=== PATIENT | female | born 1955 | race Caucasian/White ===

== ENCOUNTER 2019-06-02 08:58 | Outpatient (RCR) | payer OTHER, SELFPAY | END 2019-08-31 23:59 | disposition home or self-care (01) | LOC: CHSAUDIO 08:58 | PROVIDERS: PCP Nurse Practitioner Family; Visit Provider Audiologist | DX: H93.11 Tinnitus, right ear (principal) | CPT/HCPCS: 92557; 92567 ==

== ENCOUNTER 2020-10-03 12:16 | Outpatient (CLI) | payer OTHER, SELFPAY ==
--- NOTE | ~2020-10-03 | DEXA_ITS ---
Bone Density Report Name: Hector Stafford Age: 65 Sex: Female Ethnicity: White Date of : 1955 Indication: postmenopausal; screening for osteoporosis; height loss; hysterectomy; Referring Provider: Meka Chanel Study: Bone densitometry was performed. Exam Date: October 03, 2020 Accession number: [id number] Bone Density: Region BMD T-score Z-score Classification AP Spine(L1-L4) 0.858 -1.7 0.1 Osteopenia Femoral Neck (Left) 0.602 -2.2 -0.7 Osteopenia Total Hip (Left) 0.774 -1.4 -0.1 Osteopenia Femoral Neck (Right) 0.674 -1.6 0.0 Osteopenia Total Hip (Right) 0.830 -0.9 0.4 Normal Femoral Neck Mean 0.638 -1.9 -0.3 Osteopenia Total Hip Mean 0.802 -1.1 0.1 Osteopenia World Health Organization criteria for BMD impression classify patients as: Normal (T-score at or above -1.0), Osteopenia (T-score between -1.0 and -2.5), or Osteoporosis (T-score at or below -2.5). 10-year Fracture Risk(1): Major Osteoporotic Fracture 11% Hip Fracture 1.8% Reported Risk Factors: [place] (), Neck BMD=0.602, BMI=30.0 (1) FRAX(R) Version 3.08. Fracture probability calculated for an untreated patient. Fracture probability may be lower if the patient has received treatment. Clinical Information Provided by Patient: Has used the following medications: Vitamin D Has the following medical conditions: Hysterectomy Patient maximum height was 63 Menopause Age: 49 No regular weight bearing exercise Does not regularly consume dairy products Onset of menses at age 11 Number of children 2 Impression: The patient has low bone mass, based on the Left Femoral Neck T-score. Discussion: BONE DENSITY IS LOW AT ONE OR MORE SKELETAL SITES. This patient's lowest T-score is low at one or more skeletal sites. It meets the World Health Organization's (WHO) criteria for ?low bone mass? (T-score between -1.0 and -2.5). The patient's 10-year risk of fracture as calculated by FRAX is less than the threshold where pharmacological therapy is recommended by the National Osteoporosis Foundation (NOF). However, all treatment decisions require clinical judgment and consideration of individual patient factors, including patient preferences, comorbidities, previous drug use, risk factors not captured in the FRAX model (e.g., frailty, falls, vitamin D deficiency, increased bone turnover, interval significant decline in bone density) and possible under or overestimation of fracture risk by FRAX. The patient should follow a healthful lifestyle (good nutrition with adequate calcium and vitamin D, and appropriate weight-bearing exercise). Follow-Up: Consider repeating this study in 2 to 3 years to reassess this patient's status, or sooner if there is some new clinical indication. Reported by: Dr. Shen Pearson
--- NOTE | ~2020-10-03 | MM_ITS ---
EXAMINATION: MM screening elissa BI w leonila HISTORY: Screening mammogram TECHNIQUE: Craniocaudal and mediolateral oblique 3-D tomosynthesis images were obtained and synthetic 2-D images were generated. CAD analysis was submitted and interpreted. COMPARISON: 05/11/2018, 03/29/2015 bilateral digital screening mammogram examinations BREAST PARENCHYMAL COMPOSITION: There are scattered areas of fibroglandular density. FINDINGS: Scattered benign calcifications. There is no evidence of suspicious mass, calcification, or architectural distortion to suggest malignancy in either breast. There has been no suspicious interv al change. IMPRESSION: 1. No mammographic evidence of malignancy. 2. Recommend routine screening mammography in one year. BI-RADS Category 1: Negative Reviewed, dictated and finalized at location A.
== END 2020-10-03 12:17 | disposition home or self-care (01) ==
LOC: CHSIMG 12:21
PROVIDERS: PCP Nurse Practitioner Family; Visit Provider Nurse Practitioner Family
DX: Z12.31 Encounter for screening mammogram for malignant neoplasm of breast (principal); Z78.0 Asymptomatic menopausal state
CPT/HCPCS: 77063; 77067; 77080

== ENCOUNTER 2021-03-15 09:38 | Outpatient (CLI) | payer OTHER, SELFPAY ==
[2021-03-15 10:35] LABS: Influenza A QL RT-PCR Negative (Negative); Influenza B QL RT-PCR Negative (Negative); SARS-CoV-2 RNA PCR Positive (Negative)
== END 2021-03-15 09:39 | disposition home or self-care (01) ==
LOC: CHSLAB 09:43
PROVIDERS: PCP Nurse Practitioner Family; Visit Provider Nurse Practitioner Family
DX: R50.9 Fever, unspecified (principal); U07.1 COVID-19
CPT/HCPCS: 87502; C9803; U0003; U0005

== ENCOUNTER 2021-03-28 11:14 | Outpatient (CLI) | payer OTHER, SELFPAY ==
[2021-03-28 13:42] LABS: SARS-CoV-2 RNA PCR Negative (Negative)
== END 2021-03-28 11:15 | disposition home or self-care (01) ==
LOC: CHSLAB 11:18
PROVIDERS: PCP Nurse Practitioner Family; Visit Provider Nurse Practitioner Family
DX: Z20.822 Contact with and (suspected) exposure to COVID-19 (principal)
CPT/HCPCS: C9803; U0003; U0005

== ENCOUNTER 2021-10-22 17:08 | Outpatient (CLI) | payer MEDICARE, OTHER, SELFPAY ==
--- NOTE | ~2021-10-22 | XR_ITS ---
EXAMINATION: XR chest 2V 10/22/2021 17:27 INDICATION: Shortness of breath with cough PROCEDURE: 2 view chest COMPARISON: 01/09/2017 FINDINGS: The lungs are clear. The cardiomediastinal silhouette is within normal limits. There are no pleural effusions. There is no pneumothorax suspected. There are cholecystectomy clips. IMPRESSION: 1: NO ACUTE CARDIOPULMONARY DISEASE. Reviewed, dictated and finalized at location A.
== END 2021-10-22 17:09 | disposition home or self-care (01) ==
LOC: CHSIMG 17:13
PROVIDERS: PCP Nurse Practitioner Family; Visit Provider Nurse Practitioner Family
DX: R06.02 Shortness of breath (principal); R05.9 Cough, unspecified
CPT/HCPCS: 71046

== ENCOUNTER 2021-11-07 17:06 | Outpatient (CLI) | payer MEDICARE, OTHER, SELFPAY ==
--- NOTE | ~2021-11-07 | XR_ITS ---
EXAMINATION: XR chest 2V Exam Date/Time: 11/07/2021 17:15 CDT HISTORY: sob with productive cough x 1 mo Comparison: 10/22/2021. RESULT: Lines, tubes, and devices: Cholecystectomy clips. Lungs and pleura: Clear. Cardiomediastinal silhouette: Stable. Other: No acute osseous or upper abdominal finding. IMPRESSION: No acute cardiopulmonary process. Reviewed, dictated and finalized at location K.
== END 2021-11-07 17:07 | disposition home or self-care (01) ==
LOC: CHSIMG 17:08
PROVIDERS: PCP Nurse Practitioner Family; Visit Provider Nurse Practitioner Family
DX: U07.1 COVID-19 (principal)
CPT/HCPCS: 71046

== ENCOUNTER 2023-01-30 10:18 | Outpatient (CLI) | payer MEDICARE, OTHER, SELFPAY ==
--- NOTE | ~2023-01-30 | XR_ITS ---
XR chest 2V DATE: 01/30/2023 11:10 INDICATION: Productive cough, midsternal chest pain for 4 days TECHNIQUE: 2 views COMPARISON: 11/07/2021 PA and lateral chest FINDINGS: Normal heart size. Aortic arch calcification, mild aortic unfolding. No hilar or mediastina l enlargement. No pulmonary infiltrate or consolidation, pleural effusion or pulmonary vascular conge stion or pneumothorax. Status post cholecystectomy. IMPRESSION: No active cardiopulmonary disease Aortic atherosclerosis. Status post cholecystectomy Reviewed, dictated and finalized at location L.
[2023-01-30 10:54] LABS: Basophils Absolute Auto 0.05 K/mm3 (0.00-0.10); Basophils Percent Auto 0.7 % (0.0-1.0); Eosinophils Percent Auto 1.5 % (1.0-6.0); Hematocrit 38.1 % (35.0-42.0); Hemoglobin 12.3 g/dL (11.7-13.8); Immature Granulocyte Absolute 0.02 K/mm3 (0.00-0.00); Immature Granulocyte Percent A 0.3 % (0.0-0.0); Lymphocytes Absolute Auto 1.41 K/mm3 (1.10-4.50); Lymphocytes Percent Auto 20.9 % (18.0-42.0); Mean Corpuscular HGB Conc 32.3 g/dL (32.0-36.0); Mean Corpuscular Hemoglobin 30.8 pg (27.0-31.0); Mean Corpuscular Volume 95.3 fL (78.0-102.0); Mean Platelet Volume 9.2 fl (9.2-11.8); Monocytes Absolute Auto 0.34 K/mm3 (0.10-0.90); Neutrophils Absolute Auto 4.8 K/mm3 (1.7-7.2); Neutrophils Percent Auto 71.6 % (50.0-70.0); Platelet Count Result 216 K/mm3 (150-420); Red Cell Distribution Width 13.4 % (11.6-14.4); White Blood Count 6.7 K/mm3 (4.8-10.8)
[2023-01-30 12:10] LABS: Alanine Aminotransferase 131 U/L (14-59); Albumin Level 3.9 g/dL (3.4-5.0); Alkaline Phosphatase 103 U/L (46-116); Anion Gap 14 mmol/L (8-16); Aspartate Amino Transferase 55 U/L (15-37); Bilirubin,Total 0.5 mg/dL (0.00-1.00); Blood Urea Nitrogen 13 mg/dL (7-18); Calcium 9.6 mg/dL (8.5-10.1); Carbon Dioxide 24 mmol/L (21-32); Chloride 105 mmol/L (98-108); Estimated Glomerular Filt Rate > 60; Glucose 91 mg/dL (70-99); Osmolality Calculated 296 mOsm/kg (285-295); Potassium 4.2 mmol/L (3.5-5.1); Sodium 143 mmol/L (136-145); Total Protein 6.9 g/dL (6.4-8.2)
== END 2023-01-30 10:19 | disposition home or self-care (01) ==
LOC: CHSLAB 10:20
PROVIDERS: PCP Family Medicine; Visit Provider Family Medicine
DX: I70.0 Atherosclerosis of aorta (principal); R05.9 Cough, unspecified; Z90.49 Acquired absence of other specified parts of digestive tract
CPT/HCPCS: 36415; 71046; 80053; 85025

== ENCOUNTER 2023-07-10 12:51 | Outpatient (CLI) | payer MEDICARE, OTHER, SELFPAY ==
--- NOTE | ~2023-07-10 | CT_ITS ---
EXAMINATION: CT lung screening DATE: 07/10/2023 13:28 INDICATION: TECHNIQUE: Computed tomography (CT) of the chest was performed without intravenous contrast. The dose -length product was 87.72 mGy-cm. Automated exposure control and iterative reconstruction technique w ere employed. COMPARISON: None FINDINGS: No significant pleural or pericardial effusion. No significant pleural or pericardial effus ion. No thoracic lymphadenopathy. There is atherosclerosis of the aorta and coronary arteries. Status post cholecystectomy. The there are scattered calcified granulomas no focal airspace consolidation. No noncalcified pulmonary nodules. There are hemangiomas of the thoracic spine. Mild thoracic spondyl osis. IMPRESSION: 1. Lung-RADS category 1: Negative. Continue annual screening with noncontrast low-dose chest CT in 12 months. Reviewed, dictated and finalized at location B. IMPRESSION: 1. Lung-RADS category 1: Negative. Continue annual screening with noncontrast l ow-dose chest CT in 12 months.
--- NOTE | ~2023-07-10 | DEXA_ITS ---
Bone Density Report Name: NADIR FREITAS Age: 67 Sex: Female Ethnicity: White Date of : 1955 Indication: postmenopausal; screening for osteoporosis; height loss; cancer; hysterectomy; Referring Provider: Rubi Francisco Study: Bone densitometry was performed. Exam Date: July 10, 2023 Accession number: [id number] Bone Density: Region BMD T-score Z-score Classification AP Spine(L1-L4) 0.842 -1.9 0.2 Osteopenia Femoral Neck (Left) 0.612 -2.1 -0.4 Osteopenia Total Hip (Left) 0.773 -1.4 0.0 Osteopenia Femoral Neck (Right) 0.690 -1.4 0.3 Osteopenia Total Hip (Right) 0.864 -0.6 0.8 Normal Femoral Neck Mean 0.651 -1.8 -0.1 Osteopenia Total Hip Mean 0.819 -1.0 0.4 Normal World Health Organization criteria for BMD impression classify patients as: Normal (T-score at or above -1.0), Osteopenia (T-score between -1.0 and -2.5), or Osteoporosis (T-score at or below -2.5). 10-year Fracture Risk(1): Major Osteoporotic Fracture 11% Hip Fracture 2.1% Reported Risk Factors: [place] (), Neck BMD=0.612, BMI=29.1 (1) FRAX(R) Version 3.08. Fracture probability calculated for an untreated patient. Fracture probability may be lower if the patient has received treatment. Clinical Information Provided by Patient: Has used the following medications: Vitamin D, multi Has the following medical conditions: Cancer, Hysterectomy Patient maximum height was 63 Menopause Age: 49 Does not regularly consume dairy products Onset of menses at age 11 Number of children 2 Impression: The patient has low bone mass, based on the Left Femoral Neck T-score. Discussion: BONE DENSITY IS LOW AT ONE OR MORE SKELETAL SITES. This patient's lowest T-score is low at one or more skeletal sites. It meets the World Health Organization's (WHO) criteria for ?low bone mass? (T-score between -1.0 and -2.5). The patient's 10-year risk of fracture as calculated by FRAX is less than the threshold where pharmacological therapy is recommended by the National Osteoporosis Foundation (NOF). However, all treatment decisions require clinical judgment and consideration of individual patient factors, including patient preferences, comorbidities, previous drug use, risk factors not captured in the FRAX model (e.g., frailty, falls, vitamin D deficiency, increased bone turnover, interval significant decline in bone density) and possible under or overestimation of fracture risk by FRAX. The patient should follow a healthful lifestyle (good nutrition with adequate calcium and vitamin D, and appropriate weight-bearing exercise). Follow-Up: Consider repeating this study in 2 to 3 years to reassess this patient's status, or sooner if there is some new clinical indication. Reported by: Dr. Shen Diaz on 07/10/2023 1:22:00 PM. Reviewed, dictated and
--- NOTE | ~2023-07-10 | MM_ITS ---
EXAMINATION: MM screening elissa BI w leonila HISTORY: Screening mammogram TECHNIQUE: Craniocaudal and mediolateral oblique 3-D tomosynthesis images were obtained and synthetic 2-D images were generated. CAD analysis was submitted and interpreted. COMPARISON: 10/03/2020 bilateral screening mammogram BREAST PARENCHYMAL COMPOSITION: There are scattered areas of fibroglandular density. FINDINGS: There is no evidence of suspicious mass, calcification, or architectural distortion to sugg est malignancy in either breast. There has been no suspicious interval change. IMPRESSION: 1. No mammographic evidence of malignancy. 2. Recommend routine screening mammography in one year. BI-RADS Category 1: Negative Reviewed, dictated and finalized at location A.
== END 2023-07-10 12:52 | disposition home or self-care (01) ==
PROVIDERS: PCP Family Medicine; Visit Provider Nurse Practitioner Family
DX: Z12.31 Encounter for screening mammogram for malignant neoplasm of breast (principal); Z78.0 Asymptomatic menopausal state; Z87.891 Personal history of nicotine dependence; Z12.2 Encounter for screening for malignant neoplasm of respiratory organs; M85.89 Other specified disorders of bone density and structure, multiple sites
CPT/HCPCS: 71271; 77063; 77067; 77080

== ENCOUNTER 2024-07-09 09:05 | Outpatient (CLI) | payer MEDICARE, OTHER, SELFPAY ==
--- OUTSIDE RECORDS SUMMARY | 2024-07-09 09:35 | XMS_ITS | CONTINUITY OF CARE DOCUMENT ---
Author Name juan carlosdixiejuan carlosdixie Address Unknown Organization [facility] Address [address] [place] [address] Phone [phone] Care Team Providers Care Handle Finisher Name Role Phone Campos Amaral MD Unavailable LUTHER POLLACK MD Unavailable LUTHER POLLACK MD Unavailable PROBLEMS Condition Status Date Provider Notes Carotid artery disease active Campos Amaral MD Palpitations active Campos Amaral MD Chest pain-type to be determined active Kaylan Amaral MD ENCOUNTERS Date Type Provider Location Encounter Diag nosis - In-person encounter Office Visit [facility] - In-person encounter Office Visit Campos Amaral MD [facility] Office Carotid artery diseasePalpitationsChest pain-type to be determined VITAL SIGNS Date Observation Value Provider Body Mass Index (Ratio) 29.76 kg/m2 José Miguel Amaral MD blood pressure, diastolic 78 mm[Hg] Us windy Amaral MD blood pressure, systolic 120 mm[Hg] Kaylan Amaral MD pulse rate 66 /min Campos Amaral MD oxygen saturation, oximetry 99 % Campos Amaral MD respiratory rate E&M 20 /min Campos barron MD weight E&M 168 [lb_av] Campos Amaral MD height E&M 63 [in_i] Campos Amaral MD blood pressure, diastolic 70 mm[Hg] Us windy Amaral MD blood pressure, systolic 110 mm[Hg] Kaylan Amaral MD oxygen saturation, oximetry 99 % Campos Amaral MD pulse rate 72 /min Campos Amaral MD weight E&M 170 [lb_av] Campos Amaral MD ALLERGIES No Known Drug Allergies HISTORY OF MEDICATION USE Medication Status Instructions Dates Provider Indications Com ments CLASSIC TABLET active one tab daily Cari Solorzano VITAMIN D3 2000 UNIT ORAL TABLET active one tab daily Campos Amaral MD MAGNESIUM CITRATE POWDER active every day Cari Solorzano LORAZEPAM 0.5 MG ORAL TABLET completed as needed - Campos Amaral MD AMBIEN 5 MG ORAL TABLET active one and a half tab at bedtime Campos Amaral MD ASPIRIN 81 MG ORAL TABLET active ONE TAB. DAILY Campos Amaral MD PRAVACHOL 40 MG ORAL TABLET active ONE TAB. DAILY Campos Amaral MD SOCIAL HISTORY Date Observation Value Provider smoking/tobacco cess ation, patient education and counseling yes Campos Amaral MD social history E&M Patient is a former smoker. Smoking History: P atcady is a former smoker. B enefits of tobacco cessation reviewed. Campos Amaral MD social history reviewed E&M revi ewed - no changes required Campos Amaral MD cigarette use yes Campos Dumont smoking status Former smoker Campos Amaral MD smoking status Former smoker Campos Amaral MD FAMILY HISTORY Family Member Condition Daughter Negative FH of A S C V D INSURANCE PROVIDERS Payer name Policy type / Coverage type [place] [employer] party ID [id number] [id number] TREATMENT PLAN Date Name Performer Follow-up printed to travon Amaral MD Follow-up printed to travon Amraal MD
[2024-07-09 09:54] LABS: Add Urine Microscopic? YES; Appearance Urine Clear (Clear); Bilirubin Urine Negative (Negative); Blood Urine 1+ (Negative); Color Urine Light Yellow (Yellow); Glucose Urine UA Negative (Negative); Ketones Urine Negative (Negative); Leukocyte Esterase Ur 2+ LEU/UL (Negative); Nitrate Urine Positive (Negative); Protein Urine Negative (Negative); Specific Grav Ur 1.015 (1.010-1.020); Urobilinogen Urine 0.2 mg/dL (0.2-1.0)
[2024-07-09 10:04] LABS: Bacteria Urine 2+ /hpf; Squamous Epithelial Cell Urine Rare /hpf (Few); WBC Urine 31-50 /hpf (0-3)
== END 2024-07-09 09:06 | disposition home or self-care (01) ==
PROVIDERS: PCP Nurse Practitioner Family; Visit Provider Nurse Practitioner Family
DX: R39.9 Unspecified symptoms and signs involving the genitourinary system (principal)
CPT/HCPCS: 81001; 87086; 87186

== ENCOUNTER 2024-07-12 07:40 | Outpatient (CLI) | payer MEDICARE, OTHER, SELFPAY ==
--- NOTE | ~2024-07-12 | US_ITS ---
Limited Abdominal Sonogram: Real-time sonographic imaging of the right upper quadrant was performed. Clinical History: Abnormal serum enzyme levels Findings: The liver appears normal with no evidence of bile duct dilatation. 1.8 cm hyperechoic lesi on in the liver is most likely hemangioma. Main portal vein demonstrates normal direction of flow. Th e gallbladder is well distended, and appears normal with no evidence of gallstone or wall thickening. The common bile duct measures 4 mm. The visualized pancreas, aorta, and IVC are unremarkable. Impression: 1.8 cm hyperechoic hepatic lesion is most likely hemangioma. Consider follow-up confirmation with MR. Reviewed, dictated and finalized at location . Impression: 1.8 cm hyperechoic hepatic lesion is most likely hemangioma. Consider follow-up confirmation with MR.
--- NOTE | ~2024-07-12 | MM_ITS ---
EXAMINATION: MM screening elissa BI w leonila HISTORY: Screening mammogram TECHNIQUE: Craniocaudal and mediolateral oblique 3-D tomosynthesis images were obtained and synthetic 2-D images were generated. CAD analysis was submitted and interpreted. COMPARISON: 07/10/2023, 10/01/2020, 05/11/2018 BREAST PARENCHYMAL COMPOSITION:Not Dense. The breasts are almost entirely fatty FINDINGS: No suspicious mass, calcification, or architectural distortion are identified in either randy ast to suggest malignancy. There has been no suspicious interval change. IMPRESSION: No mammographic evidence of malignancy. Recommend routine screening mammography in one year. BI-RADS Category 1: Negative Reviewed, dictated and finalized at location .
--- OUTSIDE RECORDS SUMMARY | 2024-07-12 07:45 | XMS_ITS | Data Portability ---
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 Mucositis secondary to methotrexate therapy. 2. Psoriatic arthritis. 3. Plaque psoriasis currently well controlled. 4. Osteoarthritis. 5. High risk medication use. nv PLAN: 1. Increase folic acid to 2 mg daily. 2. Continue current methotrexate dosing. 3. Advised the patient to avoid alcohol while taking methotrexate. 4. DMARD labs in October 2023 as ordered. 5. Followup visit in 6 months for recheck. nv [email or web address] Not available 08/22/2023 11:32:58 02/26/2024 02/26/2024 IMPRESSION: 1. Psoriatic arthritis, currently well controlled. 2. Plaque psoriasis, well controlled. 3. Osteoarthritis. PLAN: 1. DMARD labs in June of 2024 as scheduled. 2. Continue current methotrexate and folate dosing. 3. Follow up visit in 6 months for a recheck. 4. Encouraged the patient to engage in a program of low impact aerobic exercise for 30 to 45 minutes, 3 to 4 times a week. aar [email or web address] Not available 02/26/2024 16:29:34 Plan of Treatment Reminders Order Date Submit Date Provider Last Modified By Organization Details Last Modified Time Details Appointments Establish ed Patient 15.EST 2024 01:30P M Dr. Gonzalo Vargas Not available Not available Not available Lab None recorded. Referral None recorded. Procedures None recorded. Surgeries None recorded. Imaging None recorded. Medication Orders None recorded. Patient TargetsNo targets recorded. Patient InstructionsNo instructions recorded. Reason for Referral None Reported. Results Created Date Observation Date Name Description Value Unit Range Abnormal Flag Note LastModifiedBy Organization Detail LastModifiedTime Result Notes None recorded. Problems Name Problem SNOMED Code Status Onset Date Resolution Date Notes Provider Name and Address Organization Details Recorded Time Psoriatic arthritis 291754742 Active 2023 Danielsalvatore Ponce [facility] 4 17:46:24 Medication monitoring Active 2023 Daniel Ponce [facility] 4 17:46:35 Plaque psoriasis 980043135 Active 2023 Katerin Heath [facility] 4 13:40:52 Osteoarthritis 780674789 Active 2023 Katerin Heath [facility] 4 13:40:59 Stomatitis 14352652 Active 2023 Gonzalo Vargas MD [address] [place] [address], [phone], [facility] 4 15:23:33 Problem Notes None recorded. Procedures Surgical History Date Name Laterality Status Provider Name and Address Organization Details Recorded Time Colonoscopy with biopsy completed Not Available Health Note 08/19/2023 14:56:08 Removal of gallbladder completed Not Available Health Note 08/19/2023 14:56:08 Partial hysterectomy completed Not Available Health Note 08/19/2023 14:56:08 Imaging Results None recorded. Procedure Notes None recorded. Medical Equipment None Reported. Allergies No known drug allergies Medications Name Sig Start Date Stop Date Status Note LastModified by Organization Details LastModified Time citalopram 40 mg tablet TAKE 1 TABLET BY MOUTH EVERY DAY active Not Available Not Available No t Available trazodone 50 mg tablet TAKE 1 TABLET BY MOUTH EVERYDAY AT BEDTIME active Not Available Not Available No t Available pravastatin 40 mg tablet TAKE 1 TABLET BY MOUTH EVERY DAY active Not Available Not Available No t Available fluconazole 150 mg tablet 150 MG ORALLY ONCE TAKE FIRST DOSE TODAY AND REPEAT IN 3 DAYS 08/19 completed Not Available Not Available Not Available benzonatate 200 mg capsule TAKE 1 CAPSULE BY MOUTH TWICE A DAY NEEDED FOR COUGH 08/19 completed Not Available Not Available Not Available meloxicam 15 mg tablet TAKE 1/2 TABLET BY MOUTH DAILY 08/20 completed Not Available Not Available Not Available Zyrtec 10 mg tablet Take 1 tablet every day by oral route. active Not Available Not Available No t Available methotrexat e sodium 2.5 mg tablet ONCE WEEKLY, TAKE 6 TABLETS BY MOUTH (OK TO TAKE 3 TABLETS IN A.M. & IN P.M. OF SAME DAY) active Not Available Not Available No t Available Multiple Vitamins tablet Take 1 tablet every day by oral route. active Not Available Not Available No t Available doxycycline monohydrate 100 mg capsule TAKE 1 CAPSULE BY MOUTH TWICE A DAY 08/19 completed Not Available Not Available Not Available aspirin 81 mg chewable tablet Chew 1 tablet every day by oral route. active Not Available Not Available No t Available folic acid 1 mg tablet TAKE 2 TABLETS BY MOUTH EVERY DAY FOR 90 DAYS active Not Available Not Available No t Available ipratropium bromide 42 mcg (0.06 %) nasal spray 2 [facility] THREE TIMES A DAY ADMINISTE R INTO EACH NOSTRIL 08/20 completed Not Available Not Available Not Available fluticasone propionate 50 mcg/actuati on nasal spray,suspe nsion INSTILL 1 SPRAY INTO EACH NOSTRIL DAILY 08/19 completed Not Available Not Available Not Available amoxicillin 875 mg-potassiu m clavulanate 125 mg tablet TAKE 1 TABLET BY MOUTH TWICE A DAY 08/19 completed Not Available Not Available Not Available azithromyci n 500 mg tablet TAKE 1 TABLET BY MOUTH DAILY FOR 5 DAYS 08/19 completed Not Available Not Available Not Available Vitamin D3 50 mcg (2,000 unit) tablet Take 1 tablet every day by oral route. active Not Available Not Available No t Available melatonin 10 mg tablet Take 1 tablet every day by oral route. active Not Available Not Available No t Available Cough DM ER 30 mg/5 mL oral suspension, extended release 10 ML ORALLY EVERY 12 HOURS NEEDED FOR COUGH 08/19 completed Not Available Not Available Not Available Chest Congestion- Cough HBP 10 mg-200 mg capsule TAKE 1 CAPSULE TWICE DAILY NEEDED FOR COUGH 08/19 completed Not Available Not Available Not Available omega 3 850 mg-dha-epa- fish oil 1,400 mg capsule Take 1 capsule every day by oral route. active Not Available Not Available No t Available Vitals Date Recorded Body height Body mass index (BMI) Body weight Heart rate Oxygen saturation Oxygen saturation in Arterial blood by Pulse oximetry Pain severity - 0-10 verbal numeric rating [Score] - Reported Systolic blood pressure Diastolic blood pressure Provider Name and Address Organization Details Last Updated DateTime 4 160.02 cm 29.1 kg/m2 20757.1 5 g 54 /min 99 % 99 % 0 126 mm[Hg] 80 mm[Hg] Katerin Heath [facility] 4 14:49:28 Date Recorded Body height Body mass index (BMI) Body weight Heart rate Oxygen saturation Oxygen saturation in Arterial blood by Pulse oximetry Pain severity - 0-10 verbal numeric rating [Score] - Reported Systolic blood pressure Diastolic blood pressure Provider Name and Address Organization Details Last Updated DateTime 4 160.02 cm 30.1 kg/m2 88305.3 4 g 60 /min 97 % 97 % 0 116 mm[Hg] 66 mm[Hg] Erendira Orourke [facility] 4 14:31:22 Social History Question Answer Notes LastModified by Organizat ion Details LastModified Time Tobacco Smoking Status Former Smoker Erendira Orourke [facility] 02/26/2024 14:32:08 Do You Have An Advance Directive? No [email or web address] Information not available 08/19/2023 What Is Your Level Of Alcohol Consumption? Occasional [email or web address] Information not available 08/19/2023 How Many Times Per Week Do You Consume Alcohol? Less Than 1 Time Per Week [email or web address] Information not available 08/19/2023 What Is Your Level Of Caffeine Consumption? Moderate [email or web address] Information not available 08/19/2023 Are You Currently Employed? 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 5-7 Times Per Week [email or web address] Information not available 08/19/2023 When Did You Quit Smoking? O2 2006 [email or web address] Information not available 08/19/2023 Do You Have A Medical Power Of Top Loader? No [facility]-[email or web address] Information not available 08/19/2023 What Was The Date Of Your Most Recent Tobacco Screening? 08/21/2023 [email or web address] Information not available 08/19/2023 What Is Your Relationship Status? [facility]-[email or web address] Information not available 08/19/2023 Do You Use Any Illicit Or Recreational Drugs? No [email or web address] Information not available 08/19/2023 Sex: Unknown Functional Status Question Answer Note LastModified by Organization D etails LastModified Time What is your exercise level? Moderate [facility]-[email or web address] Information not available 08/19/2023 Mental Status None recorded. Family History Relationship Description Onset Age of this Age Resolved Age Notes LastModified by Organization Details LastModified Time Mother Family history of malignant neoplasm [email or web address] Not available 2023 14:56:06 Brother Family history of malignant neoplasm [facility]-[email or web address] Not available 2023 14:56:07 Unspecified Relation Hypercholest erolemia [facility]-[email or web address] Not available 2023 14:56:07 Medical History Condition Response Attention-deficit Hyperactivity Disorder N High Blood Pressure N Thyroid Problems N COPD N Depression N Anemia N Diabetes N Anxiety Disorder N Bleeding Disorder N Arthritis Y Hyperlipidemia N Cancer N Stroke N Asthma N Seizures N Heart Disease N Fibromyalgia N Osteoporosis N Kidney Disease N Gynecological HistoryNo gynecological history recorded. Obstetrics History GPAL:G 0 P 0 0 0 0 Past Encounters Encounter ID Performer Location Encounter Start Date Encounter Closed Date Diagnosis/Indication Diagnosis SNOMED-CT Code Diagnosis ICD10 Code Diagnosis Note [id number] Gonzalo Vargas MD [facility] ([place]) [address] [id number] 08/21/2023 14:29:31 08/25/2023 12:57:25 Psoriatic arthritis 999136726 L40.50 Stomatitis 51173426 K12. 1 Osteoarthritis 452382126 M19.90 Long-term current use of immunosuppressive drug 588622951 Z79.631 Long-term drug therapy 089415211 Z79.899 [id number] [address] MD [facility] ([place]) [address] [id number] 02/26/2024 14:18:59 03/01/2024 05:40:44 Psoriatic arthritis 805533181 L40.50 Plaque psoriasis L40.0 Osteoarthritis 101436009 M19.90 Health Concerns Section Related Observation LastModified by Organization Detai ls LastModified Time None Recorded Concern Status LastModified by Organization Details LastModified Time None Recorded Advance Directives Directive N: Payers Encounter Date Sequence Insurance Name Policy Number Policy Rodriguez Covered Member ID Rodriguez Member ID Guarantor Name 08/21/2023 1 [place] Genine Rivera [id number] Genine Rivera 08/21/2023 2 [employer] (MEDICARE SUPPLEMENT) Genine Rivera [id number] Genine Rivera 02/26/2024 1 [place] Genine Rivera [id number] Genine Rivera 02/26/2024 2 [employer] (MEDICARE SUPPLEMENT) Genine Rivera [id number] Genine Rivera Notes Date Note Type Note Provider Name and Address Organization Details Recorded Time 4 text/html The patient is a 67-year-old female with a history of psoriatic arthritis and plaque psoriasis, as well as osteoarthritis, who is here today for a followup visit.She reports overall her arthritis is doing quite well on the current methotrexate dose of 6 tablets weekly in split dose. The patient did demonstrate some modest LFT elevations in her mid May 2023 labs, but thinks these were related to alcohol consumption with her methotrexate just prior to the labs. We repeated her liver panel on August 07, 2023, and in fact it had almost completely normalized with just a mild residual ALT elevation of 30 units/L. The patient denies any jaundice or pruritus. She does report that for roughly 1 day following each methotrexate dose, she develops some irritation and tiny blisters in her mouth over the buccal mucosae. She denies any oral thrush. No dysphagia. She has had no loss of appetite or early satiety, fever or chills or skin rash.Currently she rates her joint pain a 0/10 on a scale. She has had no morning stiffness. She keeps active on her feet and performs all of her own ADLs. She does not require the use of an assistive device for ambulation. No falls or fractures since last visit. No Raynaud s symptoms or inflammatory eye symptoms.nv Hector Mercer a 67 year oldfemalepresenting for care. Gonzalo Vargas MD [address] [place] [address], [phone], [facility] 08/23/2023 12:44:49 4 text/html Hector Mercer a 68 year oldfemalepresenting for care. This is a 68-year-old female with psoriatic arthritis, plaque psoriasis and osteoarthritis. She is here today for follow up visit. She continues on methotrexate monotherapy and reports she is tolerating the medication well. No post dosing headache, nausea, vomiting, stomatitis, alopecia, cough or pleurisy, shortness of breath, chest pain or palpitations. Her appetite has been normal and energy level is normal. She reports that the methotrexate controls her skin disease quite well. She has had no major outbreaks of psoriasis. She rates her joint pain as 0/10 on a scale. Currently, she is experiencing up to 15 minutes of morning stiffness involving the hands and wrists and knees. This is exacerbated at times by changes in the weather. No Raynaud's symptoms.aar Gonzalo Vargas MD [address] [place] [address], [phone], [facility] 03/04/2024 21:47:33 OBGyn Episode No OBEpisode recorded.
--- OUTSIDE RECORDS SUMMARY | 2024-07-12 07:45 | XMS_ITS | CONTINUITY OF CARE DOCUMENT ---
Author Name juan carlosdixiejuan carlosdixie Address Unknown Organization [facility] Address [address] [facility] [facility] [address] [place] [address] Phone [phone] Care Team Providers Care Package Wrapper Name Role Phone Campos Amaral MD Unavailable [phone] LUTHER POLLACK MD Unavailable [phone] LUTHER POLLACK MD Unavailable PROBLEMS Condition Status Date Provider Notes Carotid artery disease active Campos Amaral MD Palpitations active Campos Amaral MD Chest pain-type to be determined active Kaylan Amaral MD ENCOUNTERS Date Type Provider Location Encounter Diag nosis - In-person encounter Office Visit [facility] - In-person encounter Office Visit Campos Amaral MD [facility] Office Carotid artery diseasePalpitationsChest pain-type to be [...] Payer name Policy type / Coverage type [place] red green party ID [employer] [id number] TREATMENT PLAN Date Name Performer Follow-up printed to travon Amaral MD Follow-up printed to travon Amaral MD
== END 2024-07-12 07:41 | disposition home or self-care (01) ==
LOC: CHSIMG 07:41
PROVIDERS: PCP Nurse Practitioner Family; Visit Provider Nurse Practitioner Family
DX: R74.8 Abnormal levels of other serum enzymes (principal); Z12.31 Encounter for screening mammogram for malignant neoplasm of breast; K76.9 Liver disease, unspecified
CPT/HCPCS: 76705; 77063; 77067